=== PATIENT | male | born 1960 | race African-American/Black ===

== ENCOUNTER 2019-04-11 12:43 | Emergency (ER) | payer MEDICAID ==
[~2019-04-11] VITALS: Ht 185.4 cm; Wt 136.1 kg
[2019-04-11 12:57] VITALS: BP 124/70
== END 2019-04-11 14:49 | disposition home or self-care (01) ==
LOC: ER 12:52
DX: N39.0 Urinary tract infection, site not specified (principal); I11.0 Hypertensive heart disease with heart failure; I50.9 Heart failure, unspecified; J44.9 Chronic obstructive pulmonary disease, unspecified; M10.9 Gout, unspecified
CPT/HCPCS: 81002